=== PATIENT | female | born 1955 | race Caucasian/White ===

== ENCOUNTER 2016-07-30 13:35 | Outpatient (CLI) | payer MEDICAID | END 2016-07-30 13:36 | disposition home or self-care (01) | DX: Z12.31 Encounter for screening mammogram for malignant neoplasm of breast (principal) ==

== ENCOUNTER 2016-08-20 16:29 | Outpatient (CLI) | payer MEDICAID | END 2016-08-20 16:30 | disposition home or self-care (01) | DX: N39.0 Urinary tract infection, site not specified (principal) ==

== ENCOUNTER 2019-06-17 09:37 | Outpatient (CLI) | payer MEDICARE, MEDICAID ==
--- NOTE | 2019-06-18 09:44 | Mammography Report ---
Reason: screening mammo Procedure Date: 06/17/2019 Accession Number: [id number] / [id number] Procedure: MGN - Screening Mammo Dig Bilat CPT Code: Final Report FULL RESULT: EXAM: Screening Mammo Dig Bilat DATE: 06/17/2019 10:12 AM CLINICAL HISTORY: Screening encounter. TECHNIQUE: (B) - Bilateral CC, laterally exaggerated CC, MLO views were obtained. COMPARISON: 07/30/2016 and 08/26/2013. PARENCHYMAL PATTERN: (A) - The breast(s) demonstrate(s) scattered fibroglandular densities. FINDINGS: There are no suspicious masses, calcifications, or areas of distortion. IMPRESSION: Negative examination. BI-RADS category 1. RECOMMENDATION: (ANNUAL) - Recommend routine annual screening mammography. BI-RADS CATEGORY: (1) - Negative. STANDARD QUALIFYING STATEMENTS: 1. This examination was not reviewed with the aid of Computer-Aided Detection (CAD). 2. A negative or benign imaging report should not preclude biopsy if clinically suspicious findings are present. 3. Dense breasts may obscure an underlying neoplasm. 4. This examination was reviewed without the aid of 3D breast imaging (tomosynthesis).
== END 2019-06-17 09:38 | disposition home or self-care (01) ==
LOC: DI.N 09:37
PROVIDERS: ATTEND Family Medicine
DX: Z12.31 Encounter for screening mammogram for malignant neoplasm of breast (principal)
CPT/HCPCS: 77067

== ENCOUNTER 2021-07-05 09:51 | Outpatient (CLI) | payer MEDICARE, OTHER ==
--- NOTE | 2021-07-05 10:51 | DEXA Report ---
PROCEDURE: Dexa Spine and/or Hip INDICATIONS: POST MENOPAUSAL, OSTEOPOROSIS SCREENING TECHNIQUE: Dual energy x-ray absorptiometry (DXA) was performed on a [employer] System. Regions measur ed are the AP Spine, femoral neck, and if needed forearm. COMPARISON: None. FINDINGS: Lumbar Spine: Bone Mineral Density 0.940 g/cm/cm,T score -2.0. Left Hip: Bone Mineral Density 0.888 g/cm/cm,T score -1.0. Left Femoral Neck: Bone Mineral Density 0.812 g/cm/cm, T score -1.6. (T score greater or equal to -1.0: NORMAL) (T score from -1.1 to -2.4: OSTEOPENIA) (T score less than or equal to -2.5 to: OSTEOPOROSIS) Impression: Osteopenia Patients with diagnosis of osteoporosis or osteopenia should have regular bone mineral density assess ment. For those eligible for Medicare, routine testing is allowed once every 2 years. Testing frequ ency can be increased for patients who have rapidly progressing disease or for those who are receivin g medical therapy to restore bone mass. Reviewed by: Delio Burleson MD on 07/05/2021 10:49 AM PST Approved by: Delio Burleson MD on 07/05/2021 10:49 AM PST Station ID: [id number]
== END 2021-07-05 09:52 | disposition home or self-care (01) ==
LOC: DI 09:51
PROVIDERS: ATTEND Family Medicine
DX: Z13.820 Encounter for screening for osteoporosis (principal); N95.8 Other specified menopausal and perimenopausal disorders; M85.89 Other specified disorders of bone density and structure, multiple sites

== ENCOUNTER 2023-04-05 16:20 | Emergency (ER) | payer MEDICARE, OTHER ==
[2023-04-05 16:40] VITALS: BP 156/107; O2SAT 100
--- NOTE | 2023-04-05 17:09 | ED Physician Documentation ---
PD HPI LOWER EXT INJURY - Stated complaint Stated Complaint: LEFT KNEE INJ - Chief complaint Chief Complaint: Trauma Ext - History obtained from History obtained from: Patient, Family - History of Present Illness PD HPI LOW EXT INJURY LOCATION: Left, Knee Type of injury: Fall Where injury occurred: Home Timing - onset: Last night Timing - duration: Hours Timing - details: Abrupt onset, Still present Improved by: Rest, Ice, Immobilization Worsened by: Moving, Palpating Associated symptoms: Swelling. No: Weakness, Numbness, Tingling Contributing factors: No: Anticoagulated, Prior ortho surgery, Prosthetic joint, Work related Similar symptoms before: Diagnosis (sprain of R MCL) Recently seen: Not recently seen - Additional information Additional information: 67-year-old Mckenzie Joe has a history of Medrano's esophagus and hypertension and she was in her home last night when she fell forward and landed on her left knee. She lost balance. She indicates that she is not as sure exactly what happened in the fall but her knee now hurts. It hurts on the medial aspect and there is swelling associated with it. She does not particularly feel that the knee is getting ready to give out. She has had a prior injury to the right knee on the medial collateral ligament in a skiing accident.She is having some pain with weightbearing but she is able to bear weight. She has been wearing an elastic support. Review of Systems Constitutional: denies: Fever Ears: denies: Ear pain Nose: denies: Congestion Throat: denies: Sore throat Respiratory: denies: Cough GI: denies: Vomiting, Diarrhea Skin: denies: Rash Musculoskeletal: reports: Extremity pain, Joint pain, Joint swelling, Pain with weight bearing. denies: Neck pain, Back pain Neurologic: denies: Generalized weakness, Focal weakness, Numbness PD PAST MEDICAL HISTORY - Past Medical History Past Medical History: Yes Cardiovascular: Hypertension GI: GERD - Past Surgical History Past Surgical History: No - Present Medications Home Medications: Ambulatory Orders Medication Instructions Recorded Confirmed Omeprazole 20 mg PO DAILY 06/24/16 06/01/17 Sucralfate [Carafate] 1 gm PO ACHS #300 ml 06/01/17 - Allergies Allergies/Adverse Reactions: Allergies Allergy/AdvReac Type Severity Reaction Status Date / Time No Known Drug Allergies Allergy Verified 04/05/23 16:29 - Social History Does the pt smoke?: No Smoking Status: Never smoker Does the pt drink ETOH?: No Does the pt have substance abuse?: No - Immunizations Immunizations are current?: Yes PD ED PE NORMAL - Vitals Vital signs reviewed: Yes (Hypertensive) - General General: Alert and oriented X 3, No acute distress, Well developed/nourished - HEENT HEENT: Atraumatic, PERRL, EOMI - Respiratory Respiratory: No respiratory distress - Derm Derm: Normal color, Warm and dry, No rash - Extremities Extremities: No deformity, No edema, Other (There is point tenderness to the medial joint line on the left knee there is some pain to flexion of the knee anterior drawer is negative medial and lateral collateral ligaments appear stable. There is not specific tenderness to the patella itself.) - Neuro Neuro: Alert and oriented X 3, environmental services supervisor 2-12 intact, No motor deficit, No sensory deficit, Normal speech Eye Opening: Spontaneous Motor: Obeys Commands Verbal: Oriented GCS Score: 15 - Psych Psych: Normal mood, Normal affect Results - Vitals Vitals: Vital Signs - 24 hr 04/05/23 16:31 Temperature 36.7 C Heart Rate 80 Respiratory 16 Rate Blood Pressure 156/107 H O2 Saturation 100 Oxygen O2 Source Room air - Rads (name of study) Left knee Relevant Findings:: EMP independent interpretation of test (No evidence of fracture or dislocation.) PD Medical Decision Making - ED course Complexity details: reviewed old records, reviewed results, re-evaluated patient, considered differential, d/w patient, d/w family ED course: 67 years old female with a ground-level fall last night onto her left knee has no evidence of a fracture on plain films and has no evidence of a ligamentous injury on physical examination. She does have some swelling to the medial aspect of the knee. She may well have some blood in the joint but I believe this will heal up as a contusion and not as a ligament sprain. I discussed these findings with the patient and she would like to wear her compressive dressing and she will follow-up with orthopedics as needed. Departure - Departure Disposition: 01 Home, Self Care Clinical Impression: Contusion of left knee Qualifiers: Encounter type: initial encounter Qualified Code(s): S80.02XA - Contusion of left knee, initial encounter Condition: Stable Instructions: ED Sprain Knee Follow-Up: Dilip Ramirez DO [Primary Care Provider] - Reynaldo Grace MD [Provider Admit Priv/Credential] - Comments: Mckenzie, today it looks like you have contused your knee and we are expecting this to heal more like a contusion than a sprain. There is no evidence of ligamentous laxity on examination. There can be damage to the cartilage in the knee and this will have a different course of healing. A follow-up with orthopedics is indicated if you do not have resolution of your symptoms within 10 to 14 days. For now reduce your amount of walking use ice and compression as needed. Discharge Date/Time: 04/05/23 17:35
--- NOTE | 2023-04-05 19:25 | XRAY Report ---
PROCEDURE: Knee 4 View LT INDICATIONS: contusion medial pain/swelling TECHNIQUE: 4 views of the left knee(s) were acquired. COMPARISON: None. FINDINGS: Bones: No fractures or dislocations. No suspicious bony lesions. Medial joint space narrowing with medial and lateral chondral calcinosis Soft tissues: No knee joint effusion. No suspicious soft tissue calcifications or masses. IMPRESSION: Degenerative findings without fracture Reviewed by: Nicholas De La O MD on 04/05/2023 6:24 PM AKDT Approved by: Nicholas De La O MD on 04/05/2023 6:24 PM AKDT Station ID: [id number]
== END 2023-04-05 17:35 | disposition home or self-care (01) ==
LOC: ED 16:20
DX: S80.02XA Contusion of left knee, initial encounter (principal); W19.XXXA Unspecified fall, initial encounter; Y92.009 Unspecified place in unspecified non-institutional (private) residence as the place of occurrence of the external cause; I10 Essential (primary) hypertension
CPT/HCPCS: 99283

== ENCOUNTER 2024-04-13 15:00 | Emergency (ER) | payer MEDICARE, OTHER ==
--- NOTE | 2024-04-13 15:40 | ED Physician Documentation ---
PD HPI ABD PAIN - Stated complaint Stated Complaint: N,V ACHE - Chief complaint Chief Complaint: Abd Pain - History obtained from History obtained from: Patient, Family () - History of Present Illness Timing - onset: How many days ago (3) Timing - duration: Days (3) Timing - details: Gradual onset, Still present Quality: Cramping, Sharp, Pain Location: Epigastric Radiation: Chest Improved by: Vomiting Associated symptoms: Nausea, Vomiting. No: Hematemesis Similar symptoms before: Diagnosis (esophagitis) Recently seen: Not recently seen - Additional information Additional information: Mckenzie Joe is a 68-year-old female with a history of Medrano's esophagus who is not taking her omeprazole. She has not been taking this for some time and she has been asymptomatic. She has some red wine at a [employer] 3 days ago and she has been having issues with epigastric pain and vomiting for 3 days. She tried to take some Emetrol [id number] without relief. Review of Systems Constitutional: denies: Fever Eyes: denies: Decreased vision Ears: denies: Ear pain Nose: denies: Rhinorrhea / runny nose, Congestion Throat: denies: Sore throat Cardiac: denies: Chest pain / pressure Respiratory: denies: Dyspnea, Cough GI: reports: Abdominal Pain, Nausea, Vomiting : denies: Dysuria, Frequency Skin: denies: Rash Musculoskeletal: denies: Neck pain, Back pain, Extremity pain PD PAST MEDICAL HISTORY - Past Medical History Past Medical History: Yes Cardiovascular: Hypertension GI: GERD - Past Surgical History Past Surgical History: Yes Ortho: Knee replacement, Other - Present Medications Home Medications: Ambulatory Orders Medication Instructions Recorded Confirmed Omeprazole 20 mg PO DAILY 06/24/16 06/01/17 Sucralfate [Carafate] 1 gm PO ACHS #300 ml 06/01/17 Sucralfate [Carafate] 1 gm PO ACHS #60 tablet 04/13/24 - Allergies Allergies/Adverse Reactions: Allergies Allergy/AdvReac Type Severity Reaction Status Date / Time No Known Drug Allergies Allergy Verified 04/13/24 15:07 - Social History Does the pt smoke?: No Smoking Status: Never smoker Does the pt drink ETOH?: Yes Does the pt have substance abuse?: No Substance Use and Type: Marijuana - Immunizations Immunizations are current?: Yes - POLST Patient has POLST: No PD ED PE NORMAL - Vitals Vital signs reviewed: Yes (Hypertensive) - General General: Alert and oriented X 3, Well developed/nourished, Other ([employer] tone and flattened affect consistent with pain) - HEENT HEENT: Atraumatic, PERRL, EOMI - Neck Neck: Supple, no meningeal sign, No bony TTP - Cardiac Cardiac: RRR, No murmur - Respiratory Respiratory: No respiratory distress, Clear bilaterally - Abdomen Abdomen: Normal bowel sounds, Soft, Non distended, No organomegaly, Other (Mild epigastric tenderness no guarding no rebound tenderness) - Back Back: No CVA TTP, No spinal TTP - Derm Derm: Normal color, Warm and dry, No rash - Extremities Extremities: No deformity, No edema - Neuro Neuro: Alert and oriented X 3, network security analyst 2-12 intact, No motor deficit, No sensory deficit, Normal speech Eye Opening: Spontaneous Motor: Obeys Commands Verbal: Oriented GCS Score: 15 - Psych Psych: Normal mood Results - Vitals Vitals: Vital Signs - 24 hr 04/13/24 04/13/24 15:04 17:24 Temperature 37.3 C Heart Rate 79 63 Respiratory 20 15 Rate Blood Pressure 167/88 H 210/100 H O2 Saturation 97 96 Oxygen O2 Source Room air - Labs Labs: Laboratory Tests 04/13/24 04/13/24 15:45 15:45 WBC 9.2 RBC 4.31 Hgb 13.7 Hct 41.0 MCV 95.1 MCH 31.8 H MCHC 33.4 RDW 15.6 H Plt Count 296 MPV 11.8 H Neut # (Auto) 7.6 H Lymph # (Auto) 0.8 L [place] # (Auto) 0.9 Eos # (Auto) 0.0 Baso # (Auto) 0.0 Absolute Nucleated RBC 0.00 Nucleated RBC % 0.0 Sodium 134 L Potassium 3.3 L Chloride 95 L Carbon Dioxide 29 Anion Gap 10.0 BUN 11 Creatinine 0.6 Estimated GFR (MDRD) 99 Glucose 122 H Calcium 9.8 Total Bilirubin 1.2 H AST 117 H ALT 51 Alkaline Phosphatase 74 Total Protein 7.4 Albumin 4.4 Globulin 3.0 Albumin/Globulin Ratio 1.5 Lipase 22 - Rads (name of study) CT ab/pel with Relevant Findings:: Prelim report reviewed (Impression: Findings concerning for gastritis and proximal duodenitis and may indicate peptic ulcer disease. Suggest GI correlation. No bowel obstruction. No other area of abnormal bowel wall thickening. Normal appendix. No free fluid or free air.), EMP independent interpretation of test, See rad report Procedures - IVC sono (time) 1538 Bedside IVC sono: IVC measures (cm) (1.21), IVC collapsed c insp (cm) (complete), Dehydration (est 1 liter deficit) PD Medical Decision Making - ED course Complexity details: reviewed old records, reviewed results, re-evaluated patient, considered differential, d/w patient, d/w family Reviewed Lab Results: We reviewed a complete blood count showing a normal white blood cell count normal hemoglobin hematocrit and platelets with normal indices. Chemistries showed a low serum sodium at 134 and potassium at 3.3 and chloride at 95 BUN and creatinine were normal there is a mild elevation in bilirubin at 1.2 and AST at 117 the patient has had prior elevations in AST consistent with her prior drinking. My interpretation of these laboratory results are they are generally benign they do indicate likely that the underlying issue may be alcohol consumption. The patient admits to this being likely. She has not had blood loss so bleeding ulcer is not a concern today. ED course: 68-year-old Mckenzie Joe presents to the emergency department today with epigastric pain that is severe. She has a history of Medrano's esophagus and she is not taking her omeprazole. We attempted a GI cocktail consisting of viscous lidocaine Mylanta and cervical fate without improvement in her pain. She subsequently given intravenous Dilaudid and a CT scan of the abdomen pelvis is pending. CT scan of the abdomen pelvis points directly to the stomach as a cause of the patient's pain. She did have resolution of her pain and feels well now. This may be the a delayed reaction to the acid neutralization provided by the Mylanta. With further history I was able to get that the patient does have regular alcohol consumption and sometimes to excess. I discussed with the patient protecting her stomach from alcohol with the use of Prilosec and Carafate. We have given her a dose of Protonix IV here in the emergency department Departure - Departure Disposition: 01 Home, Self Care Clinical Impression: Gastritis Qualifiers: Gastritis type: alcoholic Chronicity: acute Gastritis bleeding: without bleeding Qualified Code(s): K29.20 - Alcoholic gastritis without bleeding Condition: Stable Instructions: ED PUD Vs Gastritis Follow-Up: Dilip Ramirez, DO [Provider Admit Priv/Credential] - Prescriptions: Sucralfate [Carafate] 1 gm PO ACHS #60 tablet Comments: Mckenzie, today it looks like you have gastritis or inflammation to the wall of the stomach and duodenum. The recommendation is to restart omeprazole. This is available [id number] under the tradename Prilosec. Take this daily. 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 I suspect this issue you have with your stomach is related to the effects of alcohol irritating the lining of your stomach. Today we did find elevation in your liver functions consistent with a problem with drinking. A follow-up with your primary care doctor after discontinuing alcohol is indicated for recheck of your liver functions. Forms: PCP List
[2024-04-13] MEDS: SUCRALFATE 1 GM/10 ML UDC PO STA (15:50)
[2024-04-13] MEDS: LIDOCAINE VISCOUS 2% 15 ML UDC MM STA (15:50)
[2024-04-13] MEDS: MAG HYDROX/AL HYDROX/SIMETH 30 ML UDC PO STA (15:50)
[2024-04-13] MEDS: ONDANSETRON 4 MG/2 ML VIAL IVP STA (15:51)
[2024-04-13] MEDS: SODIUM CHLORIDE 0.9% 1,000 ML IV STA (15:51)
[2024-04-13 15:59] LABS: BASOPHILS % (AUTO) 0.1 %; HGB - HEMOGLOBIN 13.7 g/dL (12.0-16.0); LYMPHOCYTES # (AUTO) 0.8 10^3/uL (1.5-3.5); LYMPHOCYTES % (AUTO) 8.3 %; MEAN CORPUSCULAR HEMOGLOBIN 31.8 pg (27.0-31.0); MEAN CORPUSCULAR HGB CONC 33.4 g/dL (32.0-36.0); MEAN CORPUSCULAR VOLUME 95.1 fL (81.0-99.0); MEAN PLATELET VOLUME 11.8 fL (7.9-10.8); MONOCYTES # (AUTO) 0.9 10^3/uL (0.0-1.0); MONOCYTES % (AUTO) 9.4 %; NEUTROPHILS # (AUTO) 7.6 10^3/uL (1.5-6.6); PLT - PLATELET COUNT 296 10^3/uL (130-450); RED BLOOD COUNT 4.31 10^6/uL (4.20-5.40); RED CELL DISTRIBUTION WIDTH 15.6 % (12.0-15.0); WHITE BLOOD COUNT 9.2 x10^3/uL (4.8-10.8)
[2024-04-13 16:11] LABS: ALBUMIN 4.4 g/dL (3.2-5.5); ALBUMIN/GLOBULIN RATIO 1.5 (1.0-2.2); BILIRUBIN,TOTAL 1.2 mg/dL (0.2-1.0); CALCIUM 9.8 mg/dL (8.5-10.3); CREATININE 0.6 mg/dL (0.6-1.3); POTASSIUM 3.3 mmol/L (3.5-4.5); TOTAL PROTEIN 7.4 g/dL (6.4-8.9)
[2024-04-13] MEDS ORDERED: POTASSIUM CHLOR 10 MEQ/100 ML 10 MEQ/100 ML BAG IV ONE (16:13)
[2024-04-13] MEDS ORDERED: iohexoL-300 100 ML VIAL ONE (16:30)
[2024-04-13] MEDS: POTASSIUM CHLOR 10 MEQ/100 ML 10 MEQ/100 ML BAG IV STA (16:35)
[2024-04-13] MEDS: HYDROmorphone 1 MG/ML CARPUJECT IVP STA (16:35)
--- NOTE | 2024-04-13 17:23 | CT Report ---
PROCEDURE: Abdomen/Pelvis W INDICATIONS: severe epigastric pain/vomiting without tenderness CONTRAST: 100ml [id number] TECHNIQUE: After the administration of intravenous contrast, a CT scan of the abdomen and pelvis was performed. Images were recorded and evaluated at appropriate window settings. Reformats: coronal and sagittal. F or radiation dose reduction, the following was used: automated exposure control, adjustment of mA and /or kV according to patient size. COMPARISON: None. FINDINGS: Image quality: Diagnostic. Lower chest: Unremarkable. Liver: No solid mass. Gallbladder: No radiopaque stones or wall thickening. Biliary tree: No intrahepatic or extrahepatic dilation, accounting for age. Spleen: No splenomegaly. Pancreas: No pancreatic ductal dilation. Adrenals: No adrenal nodule. Kidneys and ureters: No hydronephrosis. No renal cystic lesion which requires follow up. No solid mas s. Stomach, bowel and peritoneum: There is no evidence of bowel obstruction. Questionable gastric wall t hickening particularly involving distal gastric pylorus and proximal portion of duodenum. Mild adjace nt fat stranding is seen. No other area of abnormal bowel wall thickening. Appendix is visualized and is within normal limits. Sigmoid diverticulosis without CT evidence of acute diverticulitis. No free fluid or free air. No abscess collection. Lymph nodes: No central or retroperitoneal adenopathy. Vessels: No infrarenal aortic aneurysm. Patent portal vein. PELVIS Reproductive organs: Unremarkable. Bladder: No abnormal wall thickening, accounting for underdistention. Pelvic lymph nodes: No pelvic adenopathy by size criteria. Bones: No aggressive osseous abnormality. Other: No significant ventral or inguinal hernia. Degenerative disc disease in lower lumbar spine is seen. Grade 1 anterolisthesis of L4 on L5 is also noted. IMPRESSION: 1. Finding is concerning for gastritis and proximal duodenitis and may indicate peptic ulcer disease. Suggest GI correlation. 2. No bowel obstruction. No other area of abnormal bowel wall thickening. Normal appendix. No free fl uid or free air. Reviewed by: Jaylen Baez MD on 04/13/2024 5:21 PM PDT Approved by: Jaylen Baez MD on 04/13/2024 5:21 PM PDT Station ID: [id number]
[2024-04-13 17:29] VITALS: BP 210/100; O2SAT 96
[2024-04-13] MEDS: PANTOPRAZOLE 40 MG VIAL IVP STA (17:47)
== END 2024-04-13 18:04 | disposition home or self-care (01) ==
LOC: ED 15:00
DX: K29.20 Alcoholic gastritis without bleeding (principal); K22.70 Barrett's esophagus without dysplasia; T47.1X6A Underdosing of other antacids and anti-gastric-secretion drugs, initial encounter; Z91.138 Patient's unintentional underdosing of medication regimen for other reason
CPT/HCPCS: 36415; 74177; 80053; 83690; 85025; 96374; 96375; 99284; A9270; J1170; Q9967

== ENCOUNTER 2024-04-14 11:44 | Emergency (ER) | payer MEDICARE, OTHER ==
[2024-04-14 12:24] LABS: BASOPHILS % (AUTO) 0.1 %; HCT - HEMATOCRIT 42.2 % (37.0-47.0); HGB - HEMOGLOBIN 14.3 g/dL (12.0-16.0); LYMPHOCYTES # (AUTO) 1.5 10^3/uL (1.5-3.5); LYMPHOCYTES % (AUTO) 13.6 %; MEAN CORPUSCULAR HEMOGLOBIN 31.6 pg (27.0-31.0); MEAN CORPUSCULAR HGB CONC 33.9 g/dL (32.0-36.0); MEAN CORPUSCULAR VOLUME 93.2 fL (81.0-99.0); MEAN PLATELET VOLUME 11.3 fL (7.9-10.8); MONOCYTES # (AUTO) 1.2 10^3/uL (0.0-1.0); MONOCYTES % (AUTO) 10.7 %; NEUTROPHILS # (AUTO) 8.1 10^3/uL (1.5-6.6); NEUTROPHILS % (AUTO) 75.3 %; PLT - PLATELET COUNT 326 10^3/uL (130-450); RED BLOOD COUNT 4.53 10^6/uL (4.20-5.40); RED CELL DISTRIBUTION WIDTH 14.8 % (12.0-15.0); WHITE BLOOD COUNT 10.8 x10^3/uL (4.8-10.8)
[2024-04-14 12:38] LABS: ALBUMIN 4.5 g/dL (3.2-5.5); ALBUMIN/GLOBULIN RATIO 1.5 (1.0-2.2); BILIRUBIN,TOTAL 1.4 mg/dL (0.2-1.0); CALCIUM 9.7 mg/dL (8.5-10.3); CREATININE 0.7 mg/dL (0.6-1.3); POTASSIUM 3.1 mmol/L (3.5-4.5); TOTAL PROTEIN 7.5 g/dL (6.4-8.9)
[2024-04-14 12:53] VITALS: BP 130/113
[2024-04-14] MEDS: HYDROmorphone 1 MG/ML CARPUJECT IVP STA (13:09)
[2024-04-14] MEDS: SODIUM CHLORIDE 0.9% 1,000 ML IV STA (13:15)
[2024-04-14] MEDS: POTASSIUM CHLOR 10 MEQ/100 ML 10 MEQ/100 ML BAG IV STA (13:15)
[2024-04-14] MEDS: PANTOPRAZOLE 40 MG VIAL IV STA (13:15)
[2024-04-14 13:39] LABS: BILIRUBIN,URINE SMALL (NEGATIVE); GLUCOSE, URINE (UA) NEGATIVE (NEGATIVE); KETONES,URINE (UA) 15 mg/dL (NEGATIVE); LEUKOCYTE ESTERASE, URINE MODERATE (NEGATIVE); NITRITE,URINE NEGATIVE (NEGATIVE); OCCULT BLOOD,URINE MODERATE (NEGATIVE); PROTEIN,URINE 30 mg/dL (NEGATIVE); UROBILINOGEN,URINE 0.2 (NORMAL) E.U./dL (NORMAL)
[2024-04-14 13:40] LABS: CLARITY,URINE CLOUDY (CLEAR)
--- NOTE | 2024-04-14 13:40 | ED Physician Documentation ---
PD HPI ABD PAIN - Stated complaint Stated Complaint: SEVERE ABD PX - Chief complaint Chief Complaint: Abd Pain - History obtained from History obtained from: Patient, Family - Additional information Additional information: Patient returns to the emergency department with chief complaint of ongoing abdominal pain after being seen yesterday for the same thing. She states that her pain has been persistent in recent days and that the medication she was prescribed yesterday seem to make the pain worse when she took it this morning. She has a history of Medrano's esophagus but has not seen a GI in years and also has not taken her omeprazole in years. She denies any fevers or chills. She has been nauseated and vomited once since being seen yesterday. No diarrhea. No other complaints at this time. She had laboratory studies and CT all of which were reassuring yesterday. PD PAST MEDICAL HISTORY - Past Medical History Past Medical History: Yes Cardiovascular: Hypertension Respiratory: None Neuro: None Endocrine/Autoimmune: None GI: GERD PAVER OPERATOR: None : None HEENT: None Psych: None Musculoskeletal: None Derm: None - Past Surgical History Past Surgical History: Yes Ortho: Knee replacement, Other - Present Medications Home Medications: Ambulatory Orders Medication Instructions Recorded Confirmed Omeprazole 20 mg PO DAILY 06/24/16 06/01/17 Sucralfate [Carafate] 1 gm PO ACHS #300 ml 06/01/17 Sucralfate [Carafate] 1 gm PO ACHS #60 tablet 04/13/24 HYDROcod/ACETAM 5/325 [Sunset 5/325] 1 - 2 tablet PO Q6H PRN #14 tablet 04/14/24 - Allergies Allergies/Adverse Reactions: Allergies Allergy/AdvReac Type Severity Reaction Status Date / Time No Known Drug Allergies Allergy Verified 04/14/24 12:04 - Social History Does the pt smoke?: No Smoking Status: Never smoker Does the pt drink ETOH?: Yes Does the pt have substance abuse?: No - Immunizations Immunizations are current?: Yes - POLST Patient has POLST: No PD ED PE NORMAL - Vitals Vital signs reviewed: Yes - General General: Alert and oriented X 3, No acute distress, Well developed/nourished - HEENT HEENT: Atraumatic, PERRL, EOMI, Moist mucous membranes - Neck Neck: Supple, no meningeal sign - Cardiac Cardiac: RRR, No murmur - Respiratory Respiratory: No respiratory distress, Clear bilaterally - Abdomen Abdomen: Soft, Non distended, Other (Moderate tenderness left lower quadrant, no rebound or guarding. Mild epigastric tenderness.) - Derm Derm: Normal color, Warm and dry, No rash - Extremities Extremities: No deformity - Neuro Neuro: Alert and oriented X 3 - Psych Psych: Normal mood, Normal affect Results - Vitals Vitals: Vital Signs - 24 hr 04/14/24 04/14/24 04/14/24 11:58 12:42 13:39 Temperature 36.5 C Heart Rate 99 70 Respiratory 18 Rate Blood Pressure 161/110 H 130/113 H O2 Saturation 97 99 85 L If not protocol : Oxygen Flow, liters/minute 04/14/24 13:41 Temperature Heart Rate Respiratory Rate Blood Pressure O2 Saturation 95 If not protocol 2 : Oxygen Flow, liters/minute Oxygen O2 Source Nasal cannula - Labs Labs: Laboratory Tests 04/14/24 04/14/24 04/14/24 12:13 12:13 13:24 WBC 10.8 RBC 4.53 Hgb 14.3 Hct 42.2 MCV 93.2 MCH 31.6 H MCHC 33.9 RDW 14.8 Plt Count 326 MPV 11.3 H Neut # (Auto) 8.1 H Lymph # (Auto) 1.5 [place] # (Auto) 1.2 H Eos # (Auto) 0.0 Baso # (Auto) 0.0 Absolute Nucleated RBC 0.00 Nucleated RBC % 0.0 Sodium 131 L Potassium 3.1 L Chloride 92 L Carbon Dioxide 30 Anion Gap 9.0 BUN 10 Creatinine 0.7 Estimated GFR (MDRD) 83 L Glucose 128 H Calcium 9.7 Total Bilirubin 1.4 H AST 77 H ALT 58 Alkaline Phosphatase 74 Total Protein 7.5 Albumin 4.5 Globulin 3.0 Albumin/Globulin Ratio 1.5 Lipase 19 Urine Color YELLOW Urine Clarity CLOUDY Urine pH 7.0 Ur Specific Jbphh 1.020 Urine Protein 30 H Urine Glucose (UA) NEGATIVE Urine Ketones 15 H Urine Occult Blood MODERATE H Urine Nitrite NEGATIVE Urine Bilirubin SMALL H Urine Urobilinogen 0.2 (NORMAL) Ur Leukocyte Esterase MODERATE H Urine RBC 11-25 H Urine WBC 11-25 H Ur Squamous Epith Cells MOD Squamous H Urine Bacteria Few Ur Microscopic Review INDICATED Urine Culture Comments NOT INDICATED PD Medical Decision Making - ED course Complexity details: reviewed old records, reviewed results, re-evaluated patient, considered differential, d/w patient ED course: The patient just had a CT scan yesterday which did not show any concerning acute findings. Her labs yesterday were also unremarkable including a normal white blood cell count and very mild LFT elevations. The patient admitted to drinking alcohol fairly regularly which was thought to probably be the cause of this. Her gallbladder looked fairly normal on CT. I did repeat her labs which were not significantly changed. She was slightly hyponatremic and slightly hypokalemic. She was given a dose of potassium chloride 10 mill equivalents IV as well as a liter of 0.9 normal saline. She was found to be feeling much better after her milligram of Dilaudid. At this point in time, she is already on a PPI and I felt that there was no indication to repeat the CT today as she just had one within about the last 24 hours and does not have any worsening of her labs. We have discussed the need for repeat endoscopy and probably colonoscopy also. She has an appointment with her primary doctor tomorrow. The patient is stable for discharge home. We have discussed symptomatic management at home and I have sent a prescription for pain meds for her. Departure - Departure Disposition: Home, Self Care Clinical Impression: Abdominal pain Qualifiers: Abdominal location: generalized Qualified Code(s): R10.84 - Generalized abdominal pain Condition: Stable Instructions: ED Abdominal Pain Female Non-Specific Abdominal Pain Prescriptions: HYDROcod/ACETAM 5/325 [Sunset 5/325] 1 - 2 tablet PO Q6H PRN #14 tablet PRN Reason: Pain Comments: Your labs overall look good and have not significantly worsened since yesterday. Your CT was reassuring yesterday and showed nothing that we would expect to get drastically worse in the last 24 hours. We have given you a dose of pain medication here and I have prescribed pain meds for at home as well. The prescription for these will be electronically transmitted to the [facility] in [place]. Please follow-up with your primary doctor as scheduled tomorrow morning. Forms: PCP List
[2024-04-14 13:53] LABS: BACTERIA,URINE Few /HPF (None Seen); SQUAMOUS EPITHELIAL CELL,UR MOD Squamous (<= Few)
[2024-04-14 15:18] VITALS: O2SAT 97
== END 2024-04-14 15:19 | disposition home or self-care (01) ==
LOC: ED 11:44
DX: R10.84 Generalized abdominal pain (principal); R11.2 Nausea with vomiting, unspecified; K21.9 Gastro-esophageal reflux disease without esophagitis; K22.70 Barrett's esophagus without dysplasia; T47.1X6A Underdosing of other antacids and anti-gastric-secretion drugs, initial encounter; Z91.138 Patient's unintentional underdosing of medication regimen for other reason
CPT/HCPCS: 36415; 80053; 81001; 83690; 85025; 96365; 96375; 99284; J1170; 81003; 87086

== ENCOUNTER 2024-04-16 13:27 | Day surgery (SDC) | payer MEDICARE, OTHER ==
[2024-04-16] MEDS: LACTATED RINGERS 1,000 ML IV ONE (13:43)
--- NOTE | 2024-04-16 14:33 | ANESTHESIA ---
Pre-Anesthesia VS, & Labs - Diagnosis abd pain , gerd, hx of fox's - Procedure EGD Vital Signs: Temp Pulse Resp BP Pulse Ox O2 Flow Rate 36.1 C L 99 15 120/89 H 98 04/16/24 13:52 04/16/24 13:52 04/16/24 13:52 04/16/24 13:52 04/16/24 13:52 Height: 5 ft 7 in Weight (kg): 59.2 kg Body Mass Index: 20.4 BMI Classification: Normal - NPO >8 hours - Is Patient ?: No Home Medications and Allergies Home Medications: Ambulatory Orders Sucralfate [Carafate] 1 tablet PO ACHS 04/16/24 Omeprazole 20 mg PO DAILY 06/24/16 Sucralfate [Carafate] 1 tablet PO ACHS 04/16/24 Allergies/Adverse Reactions: Allergies Allergy/AdvReac Type Severity Reaction Status Date / Time No Known Drug Allergies Allergy Verified 04/14/24 12:04 Anes History & Medical History - Anesthetic History Anesthesia Complications: reports: No previous complications Family history of Anesthesia Complications: Denies Family history of Malignant Hyperthermia: Denies - Medical History Cardiovascular: reports: Hypertension, [place] Pulmonary: reports: None Gastrointestinal: reports: GERD Urinary: reports: None Neuro: reports: None Musculoskeletal: reports: Other Endocrine/Autoimmune: reports: None Blood Disorders: reports: None Skin: reports: None Smoking Status: Never smoker Psychosocial: reports: No issues indicated - Surgical History Orthopedic: reports: Other Exam General: Alert, Oriented x3, Cooperative Dental: WNL Mouth Openin Fingerbreadth Neck Mobility: Normal Mallampati classification: II Thyromental Distance: 4-6 cm Respiratory: Lungs clear Cardiovascular: Regular rate Plan Anesthesia Type: General, Total IV Consent for Procedure(s) Verified and Reviewed: Yes Code Status: Attempt Resuscitation ASA classification: 2-Mild systemic disease Is this case an emergency?: No
[2024-04-16] MEDS ORDERED: PROPOFOL 200 MG/20 ML VIAL IVP ONE ×2 (15:53→16:31)
[2024-04-16] MEDS ORDERED: LIDOCAINE-PF 2% 10 ML AMP SUBQ ONE (15:53)
[2024-04-16] MEDS ORDERED: MIDAZOLAM 2 MG/2 ML VIAL ONE (15:54)
[2024-04-16] MEDS: LACTATED RINGERS 600 ML IV ONE (16:38)
[2024-04-16 17:25] VITALS: BP 160/94; O2SAT 100
--- NOTE | 2024-04-16 19:13 | ANESTHESIA POST OP EVALUATION ---
Anesthesia Post Eval - Post Anesthesia Eval Vitals: Last Vital Signs Temp 37 C 04/16/24 17:15 Pulse 74 04/16/24 17:15 Resp 18 04/16/24 17:15 BP 160/94 H 04/16/24 17:15 Pulse Ox 100 04/16/24 17:15 O2 Flow Rate CV Function Including HR & BP: Stable Pain Control: Satisfactory Nausea & Vomiting: Negative Mental Status: Baseline Respiratory Status: Airway Patent Hydration Status: Satisfactory Anesthesia Complications: None
== END 2024-04-16 13:28 | disposition home or self-care (01) ==
LOC: SDS 13:27
PROVIDERS: ATTEND Surgery
PROC: 0DB78ZX Excision of Stomach, Pylorus, Via Natural or Artificial Opening Endoscopic, Diagnostic (ICD-10-PCS; 2024-04-16)
PROC: 0DB68ZX Excision of Stomach, Via Natural or Artificial Opening Endoscopic, Diagnostic (ICD-10-PCS; 2024-04-16)
PROC: 0DB28ZX Excision of Middle Esophagus, Via Natural or Artificial Opening Endoscopic, Diagnostic (ICD-10-PCS; 2024-04-16)
PROC: 0DB38ZX Excision of Lower Esophagus, Via Natural or Artificial Opening Endoscopic, Diagnostic (ICD-10-PCS; 2024-04-16)
PROC: 0DB98ZX Excision of Duodenum, Via Natural or Artificial Opening Endoscopic, Diagnostic (ICD-10-PCS; principal; 2024-04-16 14:45)
DX: R10.13 Epigastric pain (principal); K44.9 Diaphragmatic hernia without obstruction or gangrene; R10.33 Periumbilical pain; K21.9 Gastro-esophageal reflux disease without esophagitis; Z87.19 Personal history of other diseases of the digestive system; I10 Essential (primary) hypertension; I25.2 Old myocardial infarction
CPT/HCPCS: 43239; J7120